=== PATIENT | female | born 1995 | race Caucasian/White ===

== ENCOUNTER 2017-10-16 08:58 | Emergency (ER) | payer SELFPAY ==
[~2017-10-16] VITALS: Ht 167.6 cm; Wt 67.3 kg
[2017-10-16 09:46] LABS: HEMATOCRIT 41.1 % (36.0-46.0); HEMOGLOBIN 14.5 G/DL (11.9-15.5); MCH 33.3 PG (29.0-34.0); MCHC 35.3 G/DL (30.0-36.0); MCV 94.5 FL (83-99); RBC DIS.WIDTH-CV 12.2 % (11.8-14.6); RBC DIS.WIDTH-SD 42.9 % (39-53); RED BLOOD COUNT 4.35 M/uL (3.80-5.20); WHITE BLOOD COUNT 7.4 K/uL (4.1-10.2)
[2017-10-16 09:51] LABS: APPEARANCE CLOUDY ((CLEAR)); BILIRUBIN NEGATIVE; BLOOD NEGATIVE; COLOR YELLOW ((YELLOW)); GLUCOSE (STRIP) NEGATIVE; KETONES NEGATIVE; LEUKOCYTES MODERATE; NITRITE NEGATIVE; PROTEIN (STRIP) 30; SPECIFIC GRAVITY 1.024 (1.000-1.030)
[2017-10-16 09:55] LABS: CHLORIDE 109 mEq/L (99-109); POTASSIUM 3.9 mEq/L (3.7-5.4); SODIUM 137 mEq/L (136-147)
[2017-10-16 09:56] LABS: GLUCOSE 87 mg/dL (70-99)
[2017-10-16 10:00] LABS: CREATININE 0.8 mg/dL (0.6-1.3)
[2017-10-16 10:01] LABS: UREA NITROGEN (BUN) 9 mg/dL (9-23)
[2017-10-16 10:11] LABS: GFR ESTIMATE (CALCULATED) > 59 mL/min/; QUANTITATIVE HCG < 4.0 MIU/ML
[2017-10-16 10:21] LABS: RED BLOOD CELLS NONE SEEN /HPF (0-5)
[2017-10-16 10:22] LABS: BACTERIA 1+ /HPF; EPITHELIAL CELLS 2+ /HPF; MUCUS NONE SEEN /LPF
[2017-10-16 10:44] LABS: PLAT.SUFFICIENCY ADEQUATE; PLATELET COUNT 227 K/uL (156-360)
[2017-10-16 11:08] LABS: ALBUMIN 4.6 g/dL (3.2-4.8)
[2017-10-16 11:09] LABS: AMYLASE 34 IU/L (1-118)
[2017-10-16 11:11] LABS: TOTAL PROTEIN 7.3 g/dL (6.4-8.3)
[2017-10-16 11:13] LABS: TOTAL BILIRUBIN 0.4 mg/dL (0.0-1.0)
[2017-10-16 11:14] LABS: ALKALINE PHOSPHATASE 56 IU/L (3-129)
[2017-10-16 11:16] LABS: AST (GOT) 16 IU/L (2-34); DIRECT BILIRUBIN 0.2 mg/dL (0.0-0.3)
[2017-10-16 11:17] LABS: ALT (GPT) 12 IU/L (3-49); LIPASE 13 U/L (1.0-51.0)
[2017-10-16] MEDS ORDERED: BACTRIM,SEPT1 TABLET PO (11:32)
[2017-10-16] MEDS ORDERED: ZOFRAN4 MG PO (11:32)
[2017-10-16 11:41] VITALS: BP 118/78
== END 2017-10-16 11:42 | disposition home or self-care (01) ==
LOC: EME 08:58
PROVIDERS: Nurse Practitioner Family
DX: N83.201 Unspecified ovarian cyst, right side (principal); N30.90 Cystitis, unspecified without hematuria; F17.200 Nicotine dependence, unspecified, uncomplicated; R11.2 Nausea with vomiting, unspecified
CPT/HCPCS: 74177; 80048; 80076; 81003; 82150; 83690; 84702; 85027; 87086; 99281; 99285; J7030